=== PATIENT | male | born 1960 | race African-American/Black ===

== ENCOUNTER 2017-05-13 20:17 | Inpatient (IN) | payer MEDICAID, OTHER ==
[~2017-05-13] VITALS: Ht 177.8 cm; Wt 94.6 kg
[~2017-05-13 20:17] MED LIST: ARIP15TA2 PO; HALO50VI4 IM
[2017-05-13 20:57] LABS: BASOPHILS % (AUTO) 0.4 % (0.0-2.0); EOSINOPHILS % (AUTO) 0.2 % (1.0-6.0); HEMATOCRIT 38.9 % (41-53); HEMOGLOBIN 12.9 g/dL (13.5-17.5); LYMPHOCYTES # (AUTO) 2.9 K/uL (1.0-4.8); LYMPHOCYTES % (AUTO) 33.8 % (22.0-44.0); MEAN CORPUSCULAR HEMOGLOBIN 29.5 pg (26.0-34.0); MEAN CORPUSCULAR HGB CONC 33.1 G/dL (31.0-37.0); MEAN CORPUSCULAR VOLUME 89 fL (80-100); MONOCYTES # (AUTO) 0.9 K/uL (0.1-1.0); NEUTROPHILS # (AUTO) 4.8 K/uL (1.8-7.7); NEUTROPHILS % (AUTO) 55.6 % (40.0-70.0); PLATELET COUNT (AUTO) 150 K/uL (150-450); RED BLOOD CELL COUNT(AUTO) 4.37 MIL/uL (4.50-5.90); WHITE BLOOD COUNT (AUTO) 8.6 K/uL (4.5-11.0)
[2017-05-13 21:13] LABS: ALANINE AMINOTRANSFERASE 87 U/L (12-78); ALBUMIN 3.7 g/dL (3.4-5.0); ANION GAP 10 mmol/L (8-16); ASPARTATE AMINOTRANSFERASE 58 U/L (15-37); BILIRUBIN,TOTAL 0.8 mg/dL (0.1-1.0); CALCIUM, TOTAL 9.8 mg/dL (8.8-10.5); CARBON DIOXIDE 24 mmol/L (22-29); CHLORIDE 100 mmol/L (98-107); CREATININE 0.94 mg/dL (0.60-1.30); GLOMERULAR FILTR. RATE CALC > 60 mL/min (>60); POTASSIUM 4.3 mmol/L (3.5-5.1); SODIUM SERUM 134 mmol/L (136-145); TOTAL PROTEIN, SERUM 7.6 g/dL (6.4-8.2); UREA NITROGEN, BLOOD 16 mg/dL (7-18)
[2017-05-13] MEDS ORDERED: SODIUM CHLORIDE 0.9% 1,000 ML IV ONE (21:45)
[2017-05-13] MEDS ORDERED: HALOPERIDOL 5 MG TABLET PO PRN (22:00)
[2017-05-13] MEDS ORDERED: ZOLPIDEM TARTRATE 10 MG TABLET PO PRN (22:00)
[2017-05-13] MEDS ORDERED: LORazepam 2 MG TABLET PO PRN (22:00)
[2017-05-13 23:22] LABS: GLUCOSE,POINT OF CARE 326 MG/DL (70-110)
[2017-05-14 01:08] VITALS: BP 122/81
[2017-05-14] MEDS ORDERED: PNEUMOCOCCAL VACCINE POLYVALENT 0.5 ML VIAL [PPSV23] IM ONE (01:30)
[2017-05-14] MEDS ORDERED: INFLUENZA VIRUS VACCINE QVS 2017-18 (3YR+)/PF 60 MCG/0.5 ML SYRINGE IM ONE (05:15)
[2017-05-14 05:57] LABS: GLUCOSE COMMENT 1 Doctor Notified; GLUCOSE,POINT OF CARE 421 MG/DL (70-110)
[2017-05-14] MEDS ORDERED: GLUCAGON,HUMAN RECOMBINANT 1 MG VIAL IM PRN (06:45)
[2017-05-14] MEDS ORDERED: INSULIN ASPART 100 UNITS/ML SQ ONE (07:45)
[2017-05-14] MEDS: INSULIN ASPART 100 UNITS/ML SQ PRN ×4 (07:49→20:41)
[2017-05-14 08:17] VITALS: BP 145/91
[2017-05-14] MEDS: BACITRACIN 28.4 GM OINTMENT TP SCH ×2 (08:37→16:03)
[2017-05-14 08:42] LABS: GLUCOSE,POINT OF CARE 356 MG/DL (70-110)
[2017-05-14] MEDS: INSULIN DETEMIR 100 UNITS/ML SQ SCH ×2 (09:02→16:34)
[2017-05-14 11:22] LABS: GLUCOSE,POINT OF CARE 156 MG/DL (70-110)
[2017-05-14] MEDS: ARIPiprazole 15 MG TABLET PO SCH (11:24)
[2017-05-14 16:12] VITALS: BP 128/71
[2017-05-14 16:26] LABS: GLUCOSE,POINT OF CARE 275 MG/DL (70-110)
[2017-05-14 20:32] LABS: GLUCOSE,POINT OF CARE 363 MG/DL (70-110)
[2017-05-15 05:43] VITALS: BP 123/76
[2017-05-15 06:48] LABS: GLUCOSE,POINT OF CARE 224 MG/DL (70-110)
[2017-05-15] MEDS: INSULIN ASPART 100 UNITS/ML SQ PRN ×4 (06:57→20:36)
[2017-05-15 08:03] LABS: HEMOGLOBIN A1C 11.5 % (4.5-6.2)
[2017-05-15 08:04] LABS: THYROID STIMULATING HORMONE 0.89 uIU/mL (0.36-3.74)
[2017-05-15 08:06] VITALS: BP 143/79
[2017-05-15] MEDS: ARIPiprazole 15 MG TABLET PO SCH (08:59)
[2017-05-15] MEDS: INSULIN DETEMIR 100 UNITS/ML SQ SCH ×2 (09:01→16:52)
[2017-05-15] MEDS: BACITRACIN 28.4 GM OINTMENT TP SCH ×2 (09:02→16:38)
[2017-05-15 11:32] LABS: GLUCOSE,POINT OF CARE 366 MG/DL (70-110)
[2017-05-15 16:06] VITALS: BP 138/76
[2017-05-15 20:37] LABS: GLUCOSE,POINT OF CARE 386 MG/DL (70-110)
[2017-05-15 20:38] LABS: GLUCOSE,POINT OF CARE 289 MG/DL (70-110)
[2017-05-16 00:40] VITALS: BP 137/80
[2017-05-16 06:28] LABS: GLUCOSE,POINT OF CARE 288 MG/DL (70-110)
[2017-05-16] MEDS: INSULIN ASPART 100 UNITS/ML SQ PRN ×2 (07:03→11:30)
[2017-05-16 08:17] VITALS: BP 152/89
[2017-05-16] MEDS: BACITRACIN 28.4 GM OINTMENT TP SCH (08:26)
[2017-05-16] MEDS: ARIPiprazole 15 MG TABLET PO SCH (08:27)
[2017-05-16] MEDS: INSULIN DETEMIR 100 UNITS/ML SQ SCH (08:29)
[2017-05-16 11:32] LABS: GLUCOSE COMMENT 1 Received Meds; GLUCOSE,POINT OF CARE 350 MG/DL (70-110)
[2017-05-16] MEDS ORDERED: ARIP15TA2 PO (12:50)
== END 2017-05-16 14:55 | disposition home or self-care (01) | DRG 750 ==
LOC: EMS 20:19 → B2S 21:47
PROVIDERS: ADMIT Psychiatry & Neurology Child & Adolescent Psychiatry; ATTEND Psychiatry & Neurology Child & Adolescent Psychiatry
DX: F20.0 Paranoid schizophrenia (principal); R45.851 Suicidal ideations; E11.65 Type 2 diabetes mellitus with hyperglycemia; F32.9 Major depressive disorder, single episode, unspecified; F17.210 Nicotine dependence, cigarettes, uncomplicated; R74.0 Nonspecific elevation of levels of transaminase and lactic acid dehydrogenase [LDH]; F14.10 Cocaine abuse, uncomplicated; E87.1 Hypo-osmolality and hyponatremia; F12.10 Cannabis abuse, uncomplicated; Z71.51 Drug abuse counseling and surveillance of drug abuser; Z79.899 Other long term (current) drug therapy; Z91.14 Patient's other noncompliance with medication regimen; Z88.8 Allergy status to other drugs, medicaments and biological substances; Z91.5 Personal history of self-harm
CPT/HCPCS: 82962; 83036; 84439; 84443; 90471; 96360; 96361; 99285; G0480; J1815; J7030

== ENCOUNTER 2017-11-18 11:16 | Emergency (ER) | payer MEDICAID ==
[~2017-11-18 11:16] MED LIST changes: -HALO50VI4 IM
== END 2017-11-18 11:30 | disposition left against medical advice (07) ==
LOC: EMS 11:16
DX: Z53.21 Procedure and treatment not carried out due to patient leaving prior to being seen by health care provider (principal)

== ENCOUNTER 2020-07-18 17:10 | Emergency (ER) | payer MEDICAID ==
[~2020-07-18] VITALS: Ht 180.3 cm; Wt 100.0 kg
[2020-07-18 19:49] VITALS: BP 116/81
[2020-07-18] MEDS: ACETAMINOPHEN 325 MG TABLET PO ONE (20:03)
== END 2020-07-18 20:21 | disposition home or self-care (01) ==
LOC: EMS 17:10
DX: S90.822A Blister (nonthermal), left foot, initial encounter (principal); F31.9 Bipolar disorder, unspecified; F20.9 Schizophrenia, unspecified; F17.210 Nicotine dependence, cigarettes, uncomplicated; F14.90 Cocaine use, unspecified, uncomplicated; Z76.0 Encounter for issue of repeat prescription; X58.XXXA Exposure to other specified factors, initial encounter; Y93.89 Activity, other specified; Y92.89 Other specified places as the place of occurrence of the external cause; Y99.8 Other external cause status
CPT/HCPCS: 99282; Z7502; Z7610

== ENCOUNTER 2021-03-10 08:52 | Inpatient (IN) | payer MEDICAID ==
[~2021-03-10] VITALS: Ht 175.3 cm; Wt 83.9 kg
[~2021-03-10 08:52] MED LIST changes: -ARIP15TA2 PO; +ARIP15TA27 PO
[2021-03-10] MEDS ORDERED: LORazepam 2 MG/ML VIAL IM ONE (10:00)
[2021-03-10] MEDS ORDERED: DiphenhydrAMINE HCL 50 MG/ML VIAL IM ONE (10:00)
[2021-03-10] MEDS ORDERED: HALOPERIDOL LACTATE 5 MG/ML VIAL IM ONE (10:00)
[2021-03-10 10:40] LABS: ANION GAP 14 mmol/L (8-16); CALCIUM, TOTAL 9.4 mg/dL (8.8-10.5); CARBON DIOXIDE 25 mmol/L (22-29); CHLORIDE 107 mmol/L (98-107); GLOMERULAR FILTR. RATE CALC > 60 mL/min (>60); GLUCOSE,RANDOM 101 mg/dL (70-110); POTASSIUM 3.6 mmol/L (3.5-5.1); SODIUM SERUM 146 mmol/L (136-145); UREA NITROGEN, BLOOD 12 mg/dL (7-18)
[2021-03-10 10:46] LABS: ALANINE AMINOTRANSFERASE 53 U/L (12-78); ALBUMIN 3.7 g/dL (3.4-5.0); ALKALINE PHOSPHATASE 73 U/L (46-116); ASPARTATE AMINOTRANSFERASE 79 U/L (15-37); BILIRUBIN,TOTAL 1.1 mg/dL (0.1-1.0); TOTAL PROTEIN, SERUM 7.8 g/dL (6.4-8.2)
[2021-03-10] MEDS ORDERED: HydrOXYzine PAMOATE 50 MG CAPSULE PO PRN (11:30)
[2021-03-10] MEDS ORDERED: MAGNESIUM HYDROXIDE SUSPENSION 30 ML UDCUP PO PRN (11:30)
[2021-03-10] MEDS ORDERED: MAG HYDROX/AL HYDROX/SIMETH ES 30 ML SUSPENSION UDCUP PO PRN (11:30)
[2021-03-10] MEDS ORDERED: OLANZapine 5 MG RAPDIS TABLET PO PRN (11:30)
[2021-03-10] MEDS ORDERED: ACETAMINOPHEN 325 MG TABLET PO PRN (11:30)
[2021-03-10] MEDS ORDERED: GuaiFENesin/D-METHORPHAN [SUGAR-FREE] 200-20MG/10 ML SYRUP UDCUP PO PRN (11:30)
[2021-03-10] MEDS ORDERED: LORazepam 2 MG TABLET PO PRN (11:30)
[2021-03-10] MEDS ORDERED: PROMETHAZINE HCL 25 MG TABLET PO PRN (11:30)
[2021-03-10] MEDS ORDERED: ZOLPIDEM TARTRATE 10 MG TABLET PO PRN (11:30)
[2021-03-10] MEDS ORDERED: LOPERAMIDE HCL 2 MG CAPSULE PO PRN (11:30)
[2021-03-10] MEDS ORDERED: TUBERCULIN, PURIFIED PROTEIN DERIVATIVE 5 TU/0.1 ML SYRINGE ID ONE (11:30)
[2021-03-10 12:33] LABS: COVID AG,FIA SOURCE NASAL SWAB
[2021-03-10 12:46] LABS: BASOPHILS % (AUTO) 0.3 % (0.0-2.0); EOSINOPHILS % (AUTO) 0.6 % (1.0-6.0); HEMATOCRIT 36.2 % (41-53); HEMOGLOBIN 11.3 g/dL (13.5-17.5); LYMPHOCYTES # (AUTO) 1.7 K/uL (1.0-4.8); LYMPHOCYTES % (AUTO) 29.1 % (22.0-44.0); MEAN CORPUSCULAR HEMOGLOBIN 28.1 pg (26.0-34.0); MEAN CORPUSCULAR HGB CONC 31.2 G/dL (31.0-37.0); MEAN CORPUSCULAR VOLUME 90 fL (80-100); MONOCYTES # (AUTO) 0.5 K/uL (0.1-1.0); NEUTROPHILS # (AUTO) 3.6 K/uL (1.8-7.7); PLATELET COUNT (AUTO) 246 K/uL (150-450); RED BLOOD CELL COUNT(AUTO) 4.01 MIL/uL (4.50-5.90); RED CELL DISTRIBUTION WIDTH 13.5 % (11.5-14.5)
[2021-03-10 22:04] VITALS: BP 132/77
[2021-03-10] MEDS: THIAMINE 100 MG TABLET PO SCH (22:07)
[2021-03-10] MEDS: OLANZapine 5 MG RAPDIS TABLET PO SCH (22:23)
[2021-03-10] MEDS: MELATONIN 5 MG TABLET PO SCH (22:24)
[2021-03-11 08:03] LABS: ALANINE AMINOTRANSFERASE 45 U/L (12-78); ALBUMIN 2.7 g/dL (3.4-5.0); ALKALINE PHOSPHATASE 62 U/L (46-116); ANION GAP 7 mmol/L (8-16); ASPARTATE AMINOTRANSFERASE 52 U/L (15-37); BILIRUBIN,TOTAL 0.4 mg/dL (0.1-1.0); CALCIUM, TOTAL 8.3 mg/dL (8.8-10.5); CARBON DIOXIDE 29 mmol/L (22-29); CHLORIDE 107 mmol/L (98-107); CHOL/HDL RATIO 2.5 (4.2-7.3); CHOLESTEROL 124 mg/dL (131-200); CREATININE 0.75 mg/dL (0.60-1.30); FREE T4 (FREE THYROXINE) 1.15 ng/dL (0.76-1.46); GLOMERULAR FILTR. RATE CALC > 60 mL/min (>60); GLUCOSE,RANDOM 90 mg/dL (70-110); HDL CHOLESTEROL 49 mg/dL (40-60); LDL CHOL (CALC.) 69 mg/dL (0-130); POTASSIUM 3.3 mmol/L (3.5-5.1); SODIUM SERUM 143 mmol/L (136-145); THYROID STIMULATING HORMONE 0.29 uIU/mL (0.36-3.74); TOTAL PROTEIN, SERUM 6.8 g/dL (6.4-8.2); TRIGLYCERIDES 30 mg/dL (15-150); UREA NITROGEN, BLOOD 9 mg/dL (7-18)
[2021-03-11 08:06] LABS: HEMOGLOBIN A1C 5.5 % (3.8-5.6)
[2021-03-11] MEDS: THIAMINE 100 MG TABLET PO SCH ×2 (08:39→16:55)
[2021-03-11] MEDS: MULTIVITAMINS WITH MINERALS, THERAPEUTIC TABLET PO SCH (08:39)
[2021-03-11] MEDS: OMEGA-3/DHA/EPA/FISH OIL 1,000 MG CAPSULE PO SCH (08:40)
[2021-03-11] MEDS: NALTREXONE HCL 50 MG TABLET PO SCH (08:40)
[2021-03-11] MEDS: FOLIC ACID 1 MG TABLET PO SCH (08:40)
[2021-03-11] MEDS ORDERED: PALIPERIDONE PALMITATE 234 MG/1.5 ML SYRINGE IM ONE (14:15)
[2021-03-11 16:09] VITALS: BP 120/63
[2021-03-11] MEDS: MELATONIN 5 MG TABLET PO SCH (20:37)
[2021-03-11] MEDS: OLANZapine 5 MG RAPDIS TABLET PO SCH (20:38)
[2021-03-11] MEDS ORDERED: POTASSIUM CHLORIDE 20 MEQ ER TABLET PO ONE (22:15)
[2021-03-12 05:40] VITALS: BP 122/63
[2021-03-12 09:07] VITALS: BP 101/69
[2021-03-12] MEDS: MULTIVITAMINS WITH MINERALS, THERAPEUTIC TABLET PO SCH (10:03)
[2021-03-12] MEDS: OMEGA-3/DHA/EPA/FISH OIL 1,000 MG CAPSULE PO SCH (10:03)
[2021-03-12] MEDS: NALTREXONE HCL 50 MG TABLET PO SCH (10:03)
[2021-03-12] MEDS: THIAMINE 100 MG TABLET PO SCH ×2 (10:03→16:29)
[2021-03-12] MEDS: FOLIC ACID 1 MG TABLET PO SCH (10:03)
[2021-03-12 16:19] VITALS: BP 118/61
[2021-03-12] MEDS: OLANZapine 5 MG RAPDIS TABLET PO SCH (20:44)
[2021-03-12] MEDS: MELATONIN 5 MG TABLET PO SCH (20:44)
[2021-03-13 06:29] VITALS: BP 114/75
[2021-03-13 08:50] VITALS: BP 120/60
[2021-03-13] MEDS: FOLIC ACID 1 MG TABLET PO SCH (09:41)
[2021-03-13] MEDS: THIAMINE 100 MG TABLET PO SCH ×2 (09:41→17:01)
[2021-03-13] MEDS: OMEGA-3/DHA/EPA/FISH OIL 1,000 MG CAPSULE PO SCH (09:41)
[2021-03-13] MEDS: MULTIVITAMINS WITH MINERALS, THERAPEUTIC TABLET PO SCH (09:42)
[2021-03-13] MEDS: NALTREXONE HCL 50 MG TABLET PO SCH (09:44)
[2021-03-13 16:12] VITALS: BP 126/68
[2021-03-13] MEDS: MELATONIN 5 MG TABLET PO SCH (21:45)
[2021-03-13] MEDS: OLANZapine 10 MG RAPDIS TABLET PO SCH (21:45)
[2021-03-14 00:19] VITALS: BP 141/80
[2021-03-14 08:57] VITALS: BP 121/72
[2021-03-14] MEDS: NALTREXONE HCL 50 MG TABLET PO SCH (09:49)
[2021-03-14] MEDS: THIAMINE 100 MG TABLET PO SCH ×2 (09:49→16:20)
[2021-03-14] MEDS: MULTIVITAMINS WITH MINERALS, THERAPEUTIC TABLET PO SCH (09:49)
[2021-03-14] MEDS: OMEGA-3/DHA/EPA/FISH OIL 1,000 MG CAPSULE PO SCH (09:49)
[2021-03-14] MEDS: FOLIC ACID 1 MG TABLET PO SCH (09:50)
[2021-03-14 16:10] VITALS: BP 125/65
[2021-03-14] MEDS: OLANZapine 10 MG RAPDIS TABLET PO SCH (20:25)
[2021-03-14] MEDS: MELATONIN 5 MG TABLET PO SCH (20:25)
[2021-03-14] MEDS: DIVALPROEX SODIUM 500 MG ER TABLET PO SCH (20:25)
[2021-03-15 00:19] VITALS: BP 121/72
[2021-03-15 08:18] VITALS: BP 136/81
[2021-03-15] MEDS: THIAMINE 100 MG TABLET PO SCH ×2 (08:26→17:00)
[2021-03-15] MEDS: NALTREXONE HCL 50 MG TABLET PO SCH (08:26)
[2021-03-15] MEDS: MULTIVITAMINS WITH MINERALS, THERAPEUTIC TABLET PO SCH (08:26)
[2021-03-15] MEDS: FOLIC ACID 1 MG TABLET PO SCH (08:27)
[2021-03-15] MEDS: OMEGA-3/DHA/EPA/FISH OIL 1,000 MG CAPSULE PO SCH (08:27)
[2021-03-15] MEDS ORDERED: PALIPERIDONE PALMITATE 156 MG/ML SYRINGE IM ONE (09:00)
[2021-03-15 16:05] VITALS: BP 136/71
[2021-03-15] MEDS: MELATONIN 5 MG TABLET PO SCH (20:06)
[2021-03-15] MEDS: DIVALPROEX SODIUM 500 MG ER TABLET PO SCH (20:06)
[2021-03-15] MEDS: OLANZapine 10 MG RAPDIS TABLET PO SCH (20:06)
[2021-03-16 00:13] VITALS: BP 134/71
[2021-03-16 08:09] VITALS: BP 139/86
[2021-03-16] MEDS: OMEGA-3/DHA/EPA/FISH OIL 1,000 MG CAPSULE PO SCH (08:16)
[2021-03-16] MEDS: THIAMINE 100 MG TABLET PO SCH ×2 (08:16→16:54)
[2021-03-16] MEDS: FOLIC ACID 1 MG TABLET PO SCH (08:16)
[2021-03-16] MEDS: NALTREXONE HCL 50 MG TABLET PO SCH (08:16)
[2021-03-16] MEDS: MULTIVITAMINS WITH MINERALS, THERAPEUTIC TABLET PO SCH (08:16)
[2021-03-16 16:13] VITALS: BP 133/83
[2021-03-16] MEDS: OLANZapine 10 MG RAPDIS TABLET PO SCH (21:27)
[2021-03-16] MEDS: MELATONIN 5 MG TABLET PO SCH (21:27)
[2021-03-16] MEDS: DIVALPROEX SODIUM 500 MG ER TABLET PO SCH (21:27)
[2021-03-17 06:52] VITALS: BP 128/78
[2021-03-17] MEDS: THIAMINE 100 MG TABLET PO SCH ×2 (09:49→17:17)
[2021-03-17] MEDS: MULTIVITAMINS WITH MINERALS, THERAPEUTIC TABLET PO SCH (09:49)
[2021-03-17] MEDS: NALTREXONE HCL 50 MG TABLET PO SCH (09:49)
[2021-03-17] MEDS: OMEGA-3/DHA/EPA/FISH OIL 1,000 MG CAPSULE PO SCH (09:49)
[2021-03-17] MEDS: FOLIC ACID 1 MG TABLET PO SCH (09:50)
[2021-03-17 10:46] VITALS: BP 128/72
[2021-03-17 16:22] VITALS: BP 105/62
[2021-03-17] MEDS: OLANZapine 10 MG RAPDIS TABLET PO SCH (21:00)
[2021-03-17] MEDS: MELATONIN 5 MG TABLET PO SCH (21:00)
[2021-03-17] MEDS: DIVALPROEX SODIUM 500 MG ER TABLET PO SCH (21:00)
[2021-03-18 05:43] VITALS: BP 137/81
[2021-03-18] MEDS: MULTIVITAMINS WITH MINERALS, THERAPEUTIC TABLET PO SCH (08:32)
[2021-03-18] MEDS: THIAMINE 100 MG TABLET PO SCH ×2 (08:32→17:09)
[2021-03-18] MEDS: OMEGA-3/DHA/EPA/FISH OIL 1,000 MG CAPSULE PO SCH (08:32)
[2021-03-18] MEDS: NALTREXONE HCL 50 MG TABLET PO SCH (08:33)
[2021-03-18] MEDS: FOLIC ACID 1 MG TABLET PO SCH (08:33)
[2021-03-18 08:59] VITALS: BP 120/74
[2021-03-18] MEDS ORDERED: DULoxetine HCL 20 MG CAPSULE PO SCH (09:00)
[2021-03-18 16:14] VITALS: BP 127/75
[2021-03-18] MEDS: OLANZapine 10 MG RAPDIS TABLET PO SCH (21:15)
[2021-03-18] MEDS: MELATONIN 5 MG TABLET PO SCH (21:16)
[2021-03-18] MEDS: DIVALPROEX SODIUM 500 MG ER TABLET PO SCH (21:16)
[2021-03-19 06:18] VITALS: BP 121/76
[2021-03-19 08:28] VITALS: BP 137/100
[2021-03-19] MEDS: THIAMINE 100 MG TABLET PO SCH ×2 (10:09→16:46)
[2021-03-19] MEDS: FOLIC ACID 1 MG TABLET PO SCH (10:09)
[2021-03-19] MEDS: NALTREXONE HCL 50 MG TABLET PO SCH (10:09)
[2021-03-19] MEDS: MULTIVITAMINS WITH MINERALS, THERAPEUTIC TABLET PO SCH (10:09)
[2021-03-19] MEDS: OMEGA-3/DHA/EPA/FISH OIL 1,000 MG CAPSULE PO SCH (10:09)
[2021-03-19] MEDS: DULoxetine HCL 30 MG CAPSULE PO SCH (10:10)
[2021-03-19 16:29] VITALS: BP 123/70
[2021-03-19] MEDS: OLANZapine 10 MG RAPDIS TABLET PO SCH (21:01)
[2021-03-19] MEDS: DIVALPROEX SODIUM 500 MG ER TABLET PO SCH (21:01)
[2021-03-19] MEDS: MELATONIN 5 MG TABLET PO SCH (21:02)
[2021-03-20 00:28] VITALS: BP 129/75
[2021-03-20 08:21] VITALS: BP 140/100
[2021-03-20] MEDS: FOLIC ACID 1 MG TABLET PO SCH (08:44)
[2021-03-20] MEDS: NALTREXONE HCL 50 MG TABLET PO SCH (08:45)
[2021-03-20] MEDS: THIAMINE 100 MG TABLET PO SCH (08:45)
[2021-03-20] MEDS: MULTIVITAMINS WITH MINERALS, THERAPEUTIC TABLET PO SCH (08:45)
[2021-03-20] MEDS: OMEGA-3/DHA/EPA/FISH OIL 1,000 MG CAPSULE PO SCH (08:45)
[2021-03-20] MEDS: DULoxetine HCL 30 MG CAPSULE PO SCH (08:45)
[2021-03-20 16:11] VITALS: BP 138/78
[2021-03-20] MEDS: MELATONIN 5 MG TABLET PO SCH (21:38)
[2021-03-20] MEDS: OLANZapine 10 MG RAPDIS TABLET PO SCH (21:38)
[2021-03-20] MEDS: DIVALPROEX SODIUM 500 MG ER TABLET PO SCH (21:38)
[2021-03-21 04:35] VITALS: BP 126/74
[2021-03-21 08:17] VITALS: BP 130/66
[2021-03-21] MEDS: OMEGA-3/DHA/EPA/FISH OIL 1,000 MG CAPSULE PO SCH (08:40)
[2021-03-21] MEDS: NALTREXONE HCL 50 MG TABLET PO SCH (08:40)
[2021-03-21] MEDS: DULoxetine HCL 30 MG CAPSULE PO SCH (08:40)
[2021-03-21] MEDS: MULTIVITAMINS WITH MINERALS, THERAPEUTIC TABLET PO SCH (08:40)
[2021-03-21] MEDS ORDERED: MODAFINIL 100 MG TABLET PO SCH (09:00)
[2021-03-21 16:08] VITALS: BP 109/71
[2021-03-21] MEDS: DIVALPROEX SODIUM 500 MG ER TABLET PO SCH (20:48)
[2021-03-21] MEDS: OLANZapine 10 MG RAPDIS TABLET PO SCH (20:48)
[2021-03-21] MEDS: MELATONIN 5 MG TABLET PO SCH (20:48)
[2021-03-22 05:40] VITALS: BP 128/74
[2021-03-22 08:16] VITALS: BP 132/87
[2021-03-22] MEDS: MULTIVITAMINS WITH MINERALS, THERAPEUTIC TABLET PO SCH (10:13)
[2021-03-22] MEDS: NALTREXONE HCL 50 MG TABLET PO SCH (10:13)
[2021-03-22] MEDS: OMEGA-3/DHA/EPA/FISH OIL 1,000 MG CAPSULE PO SCH (10:13)
[2021-03-22] MEDS: DULoxetine HCL 30 MG CAPSULE PO SCH (10:13)
[2021-03-22] MEDS: MODAFINIL 100 MG TABLET PO SCH (10:14)
[2021-03-22 16:10] VITALS: BP 118/72
[2021-03-22] MEDS: OLANZapine 10 MG RAPDIS TABLET PO SCH (20:21)
[2021-03-22] MEDS: MELATONIN 5 MG TABLET PO SCH (20:21)
[2021-03-22] MEDS: DIVALPROEX SODIUM 500 MG ER TABLET PO SCH (20:21)
[2021-03-23 05:05] VITALS: BP 122/70
[2021-03-23 08:25] VITALS: BP 127/69
[2021-03-23] MEDS: NALTREXONE HCL 50 MG TABLET PO SCH (09:06)
[2021-03-23] MEDS: OMEGA-3/DHA/EPA/FISH OIL 1,000 MG CAPSULE PO SCH (09:06)
[2021-03-23] MEDS: DULoxetine HCL 30 MG CAPSULE PO SCH (09:06)
[2021-03-23] MEDS: MULTIVITAMINS WITH MINERALS, THERAPEUTIC TABLET PO SCH (09:06)
[2021-03-23] MEDS: MODAFINIL 100 MG TABLET PO SCH (09:06)
[2021-03-23 16:15] VITALS: BP 111/69
[2021-03-23] MEDS: DIVALPROEX SODIUM 500 MG ER TABLET PO SCH (20:53)
[2021-03-23] MEDS: OLANZapine 10 MG RAPDIS TABLET PO SCH (20:54)
[2021-03-23] MEDS: MELATONIN 5 MG TABLET PO SCH (21:07)
[2021-03-24 02:11] VITALS: BP 124/72
[2021-03-24 08:27] VITALS: BP 122/74
[2021-03-24] MEDS: NALTREXONE HCL 50 MG TABLET PO SCH (09:11)
[2021-03-24] MEDS: MODAFINIL 100 MG TABLET PO SCH (09:11)
[2021-03-24] MEDS: OMEGA-3/DHA/EPA/FISH OIL 1,000 MG CAPSULE PO SCH (09:11)
[2021-03-24] MEDS: DULoxetine HCL 30 MG CAPSULE PO SCH (09:11)
[2021-03-24] MEDS: MULTIVITAMINS WITH MINERALS, THERAPEUTIC TABLET PO SCH (09:11)
[2021-03-24 16:14] VITALS: BP 101/63
[2021-03-24] MEDS: DIVALPROEX SODIUM 500 MG ER TABLET PO SCH (20:59)
[2021-03-24] MEDS: OLANZapine 10 MG RAPDIS TABLET PO SCH (21:00)
[2021-03-24] MEDS: MELATONIN 5 MG TABLET PO SCH (21:00)
[2021-03-25 01:04] VITALS: BP 111/77
[2021-03-25 08:19] VITALS: BP 128/75
[2021-03-25] MEDS: DULoxetine HCL 30 MG CAPSULE PO SCH (08:29)
[2021-03-25] MEDS: OMEGA-3/DHA/EPA/FISH OIL 1,000 MG CAPSULE PO SCH (08:29)
[2021-03-25] MEDS: NALTREXONE HCL 50 MG TABLET PO SCH (08:29)
[2021-03-25] MEDS: MULTIVITAMINS WITH MINERALS, THERAPEUTIC TABLET PO SCH (08:29)
[2021-03-25] MEDS: MODAFINIL 100 MG TABLET PO SCH (08:30)
[2021-03-25 16:11] VITALS: BP 110/60
[2021-03-25] MEDS: MELATONIN 5 MG TABLET PO SCH (20:37)
[2021-03-25] MEDS: DIVALPROEX SODIUM 500 MG ER TABLET PO SCH (20:37)
[2021-03-25] MEDS: OLANZapine 10 MG RAPDIS TABLET PO SCH (20:37)
[2021-03-26 05:07] VITALS: BP 118/72
[2021-03-26 08:47] VITALS: BP 122/70
[2021-03-26] MEDS: OMEGA-3/DHA/EPA/FISH OIL 1,000 MG CAPSULE PO SCH (09:20)
[2021-03-26] MEDS: MULTIVITAMINS WITH MINERALS, THERAPEUTIC TABLET PO SCH (09:20)
[2021-03-26] MEDS: NALTREXONE HCL 50 MG TABLET PO SCH (09:20)
[2021-03-26] MEDS: MODAFINIL 100 MG TABLET PO SCH (09:20)
[2021-03-26] MEDS: DULoxetine HCL 30 MG CAPSULE PO SCH (09:21)
[2021-03-26] MEDS ORDERED: OMEG-135 PO (14:52)
[2021-03-26] MEDS ORDERED: DULO30CA2 PO (14:52)
[2021-03-26] MEDS ORDERED: OLAN10TA26 PO (14:52)
[2021-03-26] MEDS ORDERED: MODA100T65 PO (14:52)
[2021-03-26] MEDS ORDERED: MELA5TAB40 PO (14:52)
[2021-03-26] MEDS ORDERED: NALT50TA PO (14:52)
[2021-03-26] MEDS ORDERED: DIVA-80 PO (14:52)
[2021-03-26 16:24] VITALS: BP 103/61
[2021-03-26] MEDS: MELATONIN 5 MG TABLET PO SCH (20:49)
[2021-03-26] MEDS: DIVALPROEX SODIUM 500 MG ER TABLET PO SCH (20:49)
[2021-03-26] MEDS: OLANZapine 10 MG RAPDIS TABLET PO SCH (20:49)
[2021-03-27 05:23] VITALS: BP 11/70
[2021-03-27 08:42] VITALS: BP 131/72
[2021-03-27] MEDS: MULTIVITAMINS WITH MINERALS, THERAPEUTIC TABLET PO SCH (08:46)
[2021-03-27] MEDS: MODAFINIL 100 MG TABLET PO SCH (08:46)
[2021-03-27] MEDS: DULoxetine HCL 30 MG CAPSULE PO SCH (08:46)
[2021-03-27] MEDS: NALTREXONE HCL 50 MG TABLET PO SCH (08:46)
[2021-03-27] MEDS: OMEGA-3/DHA/EPA/FISH OIL 1,000 MG CAPSULE PO SCH (08:46)
== END 2021-03-27 15:00 | disposition home or self-care (01) | DRG 750 ==
LOC: EMS 08:52 → B3A 18:50
PROVIDERS: ADMIT Psychiatry & Neurology Psychiatry; ATTEND Psychiatry & Neurology Psychiatry
DX: F25.1 Schizoaffective disorder, depressive type (principal); R45.851 Suicidal ideations; E46 Unspecified protein-calorie malnutrition; E11.9 Type 2 diabetes mellitus without complications; Z59.00 Homelessness unspecified; E05.90 Thyrotoxicosis, unspecified without thyrotoxic crisis or storm; D64.9 Anemia, unspecified; B19.20 Unspecified viral hepatitis C without hepatic coma; E87.6 Hypokalemia; F31.9 Bipolar disorder, unspecified; F41.9 Anxiety disorder, unspecified; K59.00 Constipation, unspecified; I10 Essential (primary) hypertension; J44.9 Chronic obstructive pulmonary disease, unspecified; Z20.822 Contact with and (suspected) exposure to COVID-19; Z55.9 Problems related to education and literacy, unspecified; Z65.3 Problems related to other legal circumstances; Z87.891 Personal history of nicotine dependence; Z90.49 Acquired absence of other specified parts of digestive tract; Z88.8 Allergy status to other drugs, medicaments and biological substances; Z79.899 Other long term (current) drug therapy; Z68.27 Body mass index [BMI] 27.0-27.9, adult
CPT/HCPCS: 80053; 80061; 80164; 83036; 84132; 84439; 84443; 85025; 86592; 99291; G0480; J1200; J1630; J2060; Q9967

== ENCOUNTER 2023-05-03 07:10 | Emergency (ER) | payer MEDICAID, OTHER ==
[~2023-05-03] VITALS: Ht 175.3 cm; Wt 84.0 kg
[~2023-05-03 07:10] MED LIST changes: -ARIP15TA27 PO; +DIVA500T53 PO; +DULO30CA2 PO; +MELA5TAB40 PO; +MODA100T65 PO; +NALT50TA PO; +OLAN10TA26 PO; +OMEG-135 PO
[2023-05-03 07:34] VITALS: BP 140/70; PULSE 88; RESP 18; TEMP 98.7
== END 2023-05-03 08:43 | disposition left against medical advice (07) ==
LOC: EMS 07:11
DX: S67.21XA Crushing injury of right hand, initial encounter (principal); S61.411A Laceration without foreign body of right hand, initial encounter; F31.9 Bipolar disorder, unspecified; F20.9 Schizophrenia, unspecified; F17.210 Nicotine dependence, cigarettes, uncomplicated; Z88.8 Allergy status to other drugs, medicaments and biological substances; X58.XXXA Exposure to other specified factors, initial encounter; Y93.89 Activity, other specified; Y92.89 Other specified places as the place of occurrence of the external cause; Y99.8 Other external cause status
CPT/HCPCS: 99283; Z7502

== ENCOUNTER 2023-10-26 21:07 | Emergency (ER) | payer OTHER ==
[~2023-10-26] VITALS: Ht 177.8 cm; Wt 90.9 kg
[~2023-10-26 21:07] MED LIST changes: -NALT50TA PO; +NALT50TA6 PO
[2023-10-26 23:10] VITALS: BP 137/80; PULSE 56; RESP 17; TEMP 97.9
[2023-10-26 23:49] LABS: EOSINOPHILS % (AUTO) 2.5 % (1.0-6.0); HEMATOCRIT 32.7 % (41-53); HEMOGLOBIN 10.3 g/dL (13.5-17.5); LYMPHOCYTES # (AUTO) 1.6 K/uL (1.0-4.8); MEAN CORPUSCULAR HEMOGLOBIN 25.9 pg (26.0-34.0); MEAN CORPUSCULAR HGB CONC 31.5 G/dL (31.0-37.0); MEAN CORPUSCULAR VOLUME 82 fL (80-100); MONOCYTES # (AUTO) 0.5 K/uL (0.1-1.0); MONOCYTES % (AUTO) 10.6 % (2.0-9.0); NEUTROPHILS # (AUTO) 2.5 K/uL (1.8-7.7); NEUTROPHILS % (AUTO) 51.9 % (40.0-70.0); PLATELET COUNT (AUTO) 210 K/uL (150-450); RED BLOOD CELL COUNT(AUTO) 3.97 MIL/uL (4.50-5.90); RED CELL DISTRIBUTION WIDTH 18.4 % (11.5-14.5); WHITE BLOOD COUNT (AUTO) 4.7 K/uL (4.5-11.0)
[2023-10-27 00:08] LABS: ANION GAP 5 mmol/L (8-16); CALCIUM, TOTAL 8.2 mg/dL (8.8-10.5); CARBON DIOXIDE 27 mmol/L (22-29); CHLORIDE 107 mmol/L (98-107); CREATININE 1.04 mg/dL (0.60-1.30); GLOMERULAR FILTR. RATE CALC > 60 mL/min (>60); GLUCOSE,RANDOM 172 mg/dL (70-110); POTASSIUM 4.1 mmol/L (3.5-5.1); SODIUM SERUM 139 mmol/L (136-145); UREA NITROGEN, BLOOD 22 mg/dL (7-18)
[2023-10-27 00:11] LABS: ALANINE AMINOTRANSFERASE 82 U/L (12-78); ALBUMIN 2.3 g/dL (3.4-5.0); ALKALINE PHOSPHATASE 112 U/L (46-116); ASPARTATE AMINOTRANSFERASE 73 U/L (15-37); BILIRUBIN,TOTAL 0.6 mg/dL (0.1-1.0); TOTAL PROTEIN, SERUM 7.5 g/dL (6.4-8.2)
[2023-10-27 00:12] LABS: ALCOHOL, BLOOD (SERUM) < 3 mg/dL (0-10)
[2023-10-27] MEDS: OLANZapine 10 MG TABLET PO ONE (00:22)
== END 2023-10-27 01:40 | disposition home or self-care (01) ==
LOC: EMS 21:09
DX: F20.9 Schizophrenia, unspecified (principal); F17.210 Nicotine dependence, cigarettes, uncomplicated; Z88.7 Allergy status to serum and vaccine
CPT/HCPCS: 99283; 80053; 85025; 36415; G0480